=== PATIENT | male | born 1945 | race Caucasian/White ===

== ENCOUNTER 2018-07-24 00:32 | Emergency (ER) | payer MEDICARE, MEDICAID ==
[~2018-07-24] VITALS: Ht 175.3 cm; Wt 82.0 kg
[2018-07-24] MEDS ORDERED: SODIUM CHLORIDE 0.9% 1,000 ML IV ONE (01:30)
[2018-07-24 02:21] LABS: CHLORIDE 108 mEq/L (98-107)
[2018-07-24 02:39] LABS: HEMOGLOBIN 12.6 g/dL (14.0-18.0); MEAN CORPUSCULAR HEMOGLOBIN 30.4 pg (28.0-32.0); MEAN CORPUSCULAR VOLUME 89.4 fL (80.0-94.0); PLATELET 227 x1000/uL (130-400); RED BLOOD CELL COUNT 4.14 mill/uL (4.7-6.1); RED CELL DISTRIBUTION WIDTH 14.1 % (11.6-14.6)
[2018-07-24] MEDS ORDERED: ONDANSETRON HCL 4MG/2ML INJ IV STA (07:51)
[2018-07-24] MEDS ORDERED: MORPHINE SULFATE 4 MG/ML CPJ (NOT FOR IM USE) IV STA (07:51)
[2018-07-24] MEDS ORDERED: MORPHINE SULFATE 2 MG/ML CPJ (NOT FOR IM USE) IV STA (08:09)
[2018-07-24 08:54] VITALS: BP 133/86
== END 2018-07-24 09:16 | disposition short-term general hospital (02) ==
LOC: ER 01:07 → CANRESERV 04:17 → ENRESERV 04:17 → CANBEDREQ 04:59 → ER 09:16
DX: S73.005A Unspecified dislocation of left hip, initial encounter (principal); X58.XXXA Exposure to other specified factors, initial encounter; Y93.89 Activity, other specified; Y92.89 Other specified places as the place of occurrence of the external cause; I10 Essential (primary) hypertension; Z96.643 Presence of artificial hip joint, bilateral
CPT/HCPCS: 36415; 72170; 80053; 85027; 96374; 96375; 99285; J2270; J2405; J7030

== ENCOUNTER 2018-09-02 14:29 | Inpatient (IN) | payer MEDICARE, MEDICAID ==
[~2018-09-02] VITALS: Ht 165.1 cm; Wt 66.7 kg
[2018-09-02] MEDS ORDERED: METO-396 PO (14:37)
[2018-09-02] MEDS ORDERED: BENA5TAB6 PO (14:37)
[2018-09-02] MEDS ORDERED: SODIUM CHLORIDE 0.9% 1,000 ML IV ONE (14:59)
[2018-09-02] MEDS ORDERED: ACETAMINOPHEN 325MG TABLET PO STA (14:59)
[2018-09-02 16:08] LABS: BASOPHILS % 0.8 % (0.0-2.0); EOSINOPHILS % 1.6 % (0.0-5.0); HEMATOCRIT. 42.1 % (42.0-52.0); HEMOGLOBIN. 14.3 g/dL (14.0-18.0); LYMPHOCYTES % 11.8 % (20.0-50.0); MEAN CORPUSCULAR HEMOGLOBIN 30.6 pg (28.0-32.0); MEAN CORPUSCULAR VOLUME 90.5 fL (80.0-94.0); MEAN PLATELET VOLUME 8.2 fl (7.4-10.4); MONOCYTES % 6.9 % (2.0-8.0); NEUTROPHILS % 78.9 % (40.0-76.0); PLATELET 220 x1000/uL (130-400); RED BLOOD CELL COUNT 4.66 mill/uL (4.7-6.1); RED CELL DISTRIBUTION WIDTH 14.9 % (11.6-14.6)
[2018-09-02 16:14] LABS: INR 1.1; PROTHROMBIN TIME 11.4 sec (9.1-11.1)
[2018-09-02 16:15] LABS: CHLORIDE 105 mEq/L (98-107)
[2018-09-02 16:19] LABS: ETHANOL BLOOD < 10 mg/dL
[2018-09-02 16:23] LABS: CREATINE KINASE 42 IU/L (39-308)
[2018-09-02 17:07] LABS: CLARITY URINE CLEAR (CLEAR); COLOR URINE YELLOW (YELLOW); KETONES URINE TRACE (NEGATIVE); LEUKOCYTE ESTERASE URINE NEGATIVE (NEGATIVE); NITRITE URINE NEGATIVE (NEGATIVE); OCCULT BLOOD URINE NEGATIVE (NEGATIVE); PH URINE 5.5 (4.5-8.0); PROTEIN URINE NEGATIVE (NEGATIVE); UROBILINOGEN URINE 0.2 E.U./dL (0.2-1.0)
[2018-09-02 17:24] LABS: *AMPHETAMINES SCREEN URINE NEGATIVE (NEGATIVE); *BARBITURATES SCREEN URINE NEGATIVE (NEGATIVE); *BENZODIAZEPINES SCREEN URINE NEGATIVE (NEGATIVE); *COCAINE SCREEN URINE NEGATIVE (NEGATIVE)
[2018-09-02 17:25] LABS: CANNABINOID URINE SCREEN NEGATIVE (NEGATIVE); METHADONE URINE SCREEN NEGATIVE (NEGATIVE); OPIATES URINE SCREEN NEGATIVE (NEGATIVE); PHENCYCLIDINE URINE SCREEN NEGATIVE (NEGATIVE)
[2018-09-02] MEDS ORDERED: TRAMADOL 50MG TABLET PO PRN (18:30)
[2018-09-02] MEDS ORDERED: IPRATROPIUM/ALBUTEROL 0.5-3(2.5)MG/3ML NEB INH PRN (18:30)
[2018-09-02] MEDS ORDERED: NA PHOS,M-B/NA PHOS,DI-BA ENEMA 118ML PR PRN (18:30)
[2018-09-02] MEDS ORDERED: MORPHINE SULFATE 4 MG/ML CPJ (NOT FOR IM USE) IV PRN (18:30)
[2018-09-02] MEDS ORDERED: CLONIDINE 0.1MG TABLET PO PRN (18:30)
[2018-09-02] MEDS ORDERED: ENOXAPARIN 40MG/0.4ML SYR SUBCUT SCH (18:30)
[2018-09-02] MEDS ORDERED: NITROGLYCERIN 0.4MG TABLET SL SL PRN (18:30)
[2018-09-02] MEDS ORDERED: ONDANSETRON HCL 4MG/2ML INJ IV PRN (18:30)
[2018-09-02] MEDS ORDERED: GUAIFENESIN 200MG/10ML SUGAR FREE UDC PO PRN (18:30)
[2018-09-02] MEDS ORDERED: MAGNESIUM/ALUMINUM HYDROXIDE/SIMETHICONE 30ML UDC PO PRN (18:30)
[2018-09-02] MEDS ORDERED: LORAZEPAM 0.5MG TABLET PO PRN (18:30)
[2018-09-02] MEDS ORDERED: DOCUSATE SODIUM 100MG CAPSULE PO PRN (21:00)
[2018-09-02] MEDS ORDERED: ENOXAPARIN 60MG/0.6ML SYR SUBCUT SCH (21:00)
[2018-09-02 21:45] VITALS: BP 156/78
[2018-09-02] MEDS: METOPROLOL TARTRATE 25MG TABLET PO SCH (21:45)
[2018-09-02] MEDS ORDERED: ZOLPIDEM TARTRATE 5MG TABLET PO PRN (22:00)
[2018-09-02] MEDS: ACETAMINOPHEN 325MG TABLET PO PRN (22:23)
[2018-09-02] MEDS ORDERED: LEVOFLOXACIN 500MG PREMIX 100 ML IV SCH (22:30)
[2018-09-02] MEDS ORDERED: ASPI-1159 PO (22:41)
[2018-09-03] MEDS: LEVOFLOXACIN 500MG PREMIX 100 ML IV SCH ×2 (00:04→23:52)
[2018-09-03] MEDS ORDERED: LEFL10TA15 PO (00:23)
[2018-09-03] MEDS ORDERED: OMEP20TA2 PO (00:23)
[2018-09-03 01:18] LABS: CREATINE KINASE 60 IU/L (39-308)
[2018-09-03 01:23] LABS: CREATINE KINASE MB FRACTION 1.9 ng/mL (0.5-3.6)
[2018-09-03] MEDS: ACETAMINOPHEN 325MG TABLET PO PRN ×2 (02:51→14:12)
[2018-09-03 04:00] VITALS: BP 102/57
[2018-09-03 08:00] VITALS: BP 113/65
[2018-09-03 08:18] LABS: CREATINE KINASE MB FRACTION 1.6 ng/mL (0.5-3.6)
[2018-09-03 08:19] LABS: CREATINE KINASE 52 IU/L (39-308)
[2018-09-03] MEDS: ENOXAPARIN 60MG/0.6ML SYR SUBCUT SCH (09:53)
[2018-09-03] MEDS: ZINC SULFATE 220 MG ( 50 ) CAPSULE PO SCH (09:53)
[2018-09-03] MEDS: ASPIRIN 325MG EC TABLET PO SCH (09:53)
[2018-09-03] MEDS: METOPROLOL TARTRATE 25MG TABLET PO SCH ×2 (09:54→21:02)
[2018-09-03] MEDS ORDERED: CEFTRIAXONE 1 G PREMIX 50 ML IV SCH (11:00)
[2018-09-03] MEDS: ASCORBIC ACID 500 MG TABLET PO SCH ×2 (11:45→21:02)
[2018-09-03 12:00] VITALS: BP 126/71
[2018-09-03 16:00] VITALS: BP 137/84
[2018-09-03 20:16] VITALS: BP 146/86
[2018-09-04] VITALS: BP 125/72
[2018-09-04 04:11] VITALS: BP 148/86
[2018-09-04 07:44] VITALS: BP 104/68
[2018-09-04] MEDS: METOPROLOL TARTRATE 25MG TABLET PO SCH ×2 (09:00→21:50)
[2018-09-04] MEDS: ASCORBIC ACID 500 MG TABLET PO SCH ×2 (09:04→21:50)
[2018-09-04] MEDS: ASPIRIN 325MG EC TABLET PO SCH (09:04)
[2018-09-04] MEDS: ZINC SULFATE 220 MG ( 50 ) CAPSULE PO SCH (09:04)
[2018-09-04] MEDS: ENOXAPARIN 60MG/0.6ML SYR SUBCUT SCH (09:04)
[2018-09-04] MEDS: CEFTRIAXONE 1 G PREMIX 50 ML IV SCH (11:39)
[2018-09-04] MEDS: ACETAMINOPHEN 325MG TABLET PO PRN (11:44)
[2018-09-04 11:46] VITALS: BP 122/74
[2018-09-04 16:08] VITALS: BP 140/82
[2018-09-04 20:00] VITALS: BP 114/76
[2018-09-04] MEDS: LEFLUNOMIDE 10 MG PO SCH (21:50)
[2018-09-05] VITALS (7 sets, daily range): BP systolic 118–140; BP diastolic 69–90
[2018-09-05] MEDS: LEVOFLOXACIN 500MG PREMIX 100 ML IV SCH (00:12)
[2018-09-05] MEDS: METOPROLOL TARTRATE 25MG TABLET PO SCH ×3 (08:40→21:40)
[2018-09-05] MEDS: ZINC SULFATE 220 MG ( 50 ) CAPSULE PO SCH (08:40)
[2018-09-05] MEDS: LEFLUNOMIDE 10 MG PO SCH (08:40)
[2018-09-05] MEDS: ASCORBIC ACID 500 MG TABLET PO SCH ×2 (08:40→21:39)
[2018-09-05] MEDS: ASPIRIN 325MG EC TABLET PO SCH (08:40)
[2018-09-05] MEDS: ENOXAPARIN 60MG/0.6ML SYR SUBCUT SCH (08:41)
[2018-09-05] MEDS: CEFTRIAXONE 1 G PREMIX 50 ML IV SCH (10:38)
[2018-09-05] MEDS: LEVOFLOXACIN 500MG TABLET PO SCH ×3 (21:35→21:37)
[2018-09-06] VITALS: BP 127/70
[2018-09-06 04:04] VITALS: BP 116/69
[2018-09-06 08:00] VITALS: BP 126/77
[2018-09-06] MEDS ORDERED: ENOXAPARIN 40MG/0.4ML SYR SUBCUT SCH (09:00)
[2018-09-06] MEDS: ZINC SULFATE 220 MG ( 50 ) CAPSULE PO SCH (11:21)
[2018-09-06] MEDS: ASCORBIC ACID 500 MG TABLET PO SCH (11:21)
[2018-09-06] MEDS: ASPIRIN 325MG EC TABLET PO SCH (11:21)
[2018-09-06] MEDS: CEFTRIAXONE 1 G PREMIX 50 ML IV SCH (11:21)
[2018-09-06] MEDS: LEFLUNOMIDE 10 MG PO SCH (11:24)
[2018-09-06 12:00] VITALS: BP 122/82
[2018-09-06] MEDS: ACETAMINOPHEN 325MG TABLET PO PRN (14:39)
[2018-09-06 15:10] VITALS: BP 115/74
[2018-09-06 16:00] VITALS: BP 139/99
== END 2018-09-06 16:10 | disposition home or self-care (01) | DRG 872 ==
LOC: ER 14:29 → 6WST 18:09 → SUPCPDRO 18:21 → ENRESERV 18:49
PROVIDERS: ADMIT Internal Medicine; ATTEND Internal Medicine
DX: A41.9 Sepsis, unspecified organism (principal); H81.10 Benign paroxysmal vertigo, unspecified ear; I10 Essential (primary) hypertension; Z96.612 Presence of left artificial shoulder joint; Z96.649 Presence of unspecified artificial hip joint; M19.90 Unspecified osteoarthritis, unspecified site; Z79.899 Other long term (current) drug therapy; Z95.1 Presence of aortocoronary bypass graft; Z95.2 Presence of prosthetic heart valve
CPT/HCPCS: 36415; 70551; 71045; 80061; 80305; 82550; 82553; 83036; 83605; 83880; 84484; 93005; 93306; 96374; 97162; 99285; G0482; J0696; J1650; J1956; J2405; J7030; J7050

== ENCOUNTER 2018-10-19 21:45 | Inpatient (IN) | payer MEDICARE, MEDICAID ==
[~2018-10-19] VITALS: Ht 165.1 cm; Wt 71.7 kg
[~2018-10-19 21:45] MED LIST: ASPI-1159 PO; BENA5TAB6 PO; LEFL10TA15 PO; METO-396 PO; OMEP20TA2 PO
[2018-10-20] MEDS ORDERED: ACETAMINOPHEN WITH CODEINE 300/30MG TABLET PO ONE (03:15)
[2018-10-20 04:48] LABS: BASOPHILS % 0.7 % (0.0-2.0); EOSINOPHILS % 4.2 % (0.0-5.0); HEMOGLOBIN. 14.2 g/dL (14.0-18.0); LYMPHOCYTES % 22.5 % (20.0-50.0); MEAN CORPUSCULAR HEMOGLOBIN 30.5 pg (28.0-32.0); MEAN CORPUSCULAR VOLUME 90.6 fL (80.0-94.0); MEAN PLATELET VOLUME 7.7 fl (7.4-10.4); MONOCYTES % 10.9 % (2.0-8.0); NEUTROPHILS % 61.7 % (40.0-76.0); PLATELET 209 x1000/uL (130-400); RED BLOOD CELL COUNT 4.64 mill/uL (4.7-6.1); RED CELL DISTRIBUTION WIDTH 14.3 % (11.6-14.6)
[2018-10-20 04:49] LABS: CHLORIDE 110 mEq/L (98-107)
[2018-10-20 04:52] LABS: INR 1.1; PROTHROMBIN TIME 11.4 sec (9.1-11.1)
[2018-10-20] MEDS ORDERED: ONDANSETRON HCL 4MG/2ML INJ IV ONE (05:15)
[2018-10-20] MEDS ORDERED: PROPOFOL 200MG/20ML VIAL IV ONE (05:15)
[2018-10-20] MEDS ORDERED: IPRATROPIUM/ALBUTEROL 0.5-3(2.5)MG/3ML NEB INH PRN (10:15)
[2018-10-20] MEDS ORDERED: NITROGLYCERIN 0.4MG TABLET SL SL PRN (10:15)
[2018-10-20] MEDS ORDERED: TRAMADOL 50MG TABLET PO PRN (10:15)
[2018-10-20] MEDS ORDERED: GUAIFENESIN 200MG/10ML SUGAR FREE UDC PO PRN (10:15)
[2018-10-20] MEDS ORDERED: MAGNESIUM/ALUMINUM HYDROXIDE/SIMETHICONE 30ML UDC PO PRN (10:15)
[2018-10-20] MEDS ORDERED: MORPHINE SULFATE 4 MG/ML CPJ (NOT FOR IM USE) IV PRN (10:15)
[2018-10-20] MEDS ORDERED: ONDANSETRON HCL 4MG/2ML INJ IV PRN (10:15)
[2018-10-20] MEDS ORDERED: DOCUSATE SODIUM 100MG CAPSULE PO PRN (10:15)
[2018-10-20 10:34] VITALS: BP 115/65
[2018-10-20] MEDS: ENOXAPARIN 40MG/0.4ML SYR SUBCUT SCH (11:44)
[2018-10-20] MEDS: FAMOTIDINE 20MG TABLET PO SCH ×2 (11:44→21:05)
[2018-10-20 12:00] VITALS: BP 122/64
[2018-10-20 16:00] VITALS: BP 126/62
[2018-10-20] MEDS: CARVEDILOL 3.125 MG TABLET PO SCH (17:25)
[2018-10-20 20:00] VITALS: BP 143/95
[2018-10-20] MEDS ORDERED: ZOLPIDEM TARTRATE 5MG TABLET PO PRN (21:00)
[2018-10-20] MEDS: ASCORBIC ACID 500 MG TABLET PO SCH (21:05)
[2018-10-20 23:50] VITALS: BP 119/68
[2018-10-21 04:00] VITALS: BP 140/83
[2018-10-21] MEDS: CARVEDILOL 3.125 MG TABLET PO SCH ×3 (06:30→21:30)
[2018-10-21 08:00] VITALS: BP 132/83
[2018-10-21] MEDS: ZINC SULFATE 220 MG ( 50 ) CAPSULE PO SCH (08:19)
[2018-10-21] MEDS: ASCORBIC ACID 500 MG TABLET PO SCH ×2 (08:20→20:42)
[2018-10-21] MEDS: FAMOTIDINE 20MG TABLET PO SCH ×2 (08:20→20:42)
[2018-10-21] MEDS: ENOXAPARIN 40MG/0.4ML SYR SUBCUT SCH (08:20)
[2018-10-21] MEDS: ACETAMINOPHEN 325MG TABLET PO PRN (11:44)
[2018-10-21 12:00] VITALS: BP 121/73
[2018-10-21 16:00] VITALS: BP 133/64
[2018-10-21 20:00] VITALS: BP 124/87
[2018-10-22] VITALS: BP 145/81
[2018-10-22 04:00] VITALS: BP 143/93
[2018-10-22] MEDS: ACETAMINOPHEN 325MG TABLET PO PRN ×2 (04:01→15:44)
[2018-10-22] MEDS: CLONIDINE 0.1MG TABLET PO PRN (04:02)
[2018-10-22 08:00] VITALS: BP 128/81
[2018-10-22] MEDS: ASCORBIC ACID 500 MG TABLET PO SCH ×2 (08:54→22:23)
[2018-10-22] MEDS: FAMOTIDINE 20MG TABLET PO SCH ×2 (08:54→22:23)
[2018-10-22] MEDS: ZINC SULFATE 220 MG ( 50 ) CAPSULE PO SCH (08:54)
[2018-10-22] MEDS: ENOXAPARIN 40MG/0.4ML SYR SUBCUT SCH (08:54)
[2018-10-22 12:00] VITALS: BP 128/85
[2018-10-22 16:00] VITALS: BP 140/92
[2018-10-22] MEDS: CARVEDILOL 3.125 MG TABLET PO SCH (17:23)
[2018-10-22 20:00] VITALS: BP_SYST 140; BP_SYST 149; BP_DIAS 83
[2018-10-23] VITALS: BP 136/83
[2018-10-23 04:00] VITALS: BP 146/92
[2018-10-23] MEDS: CARVEDILOL 3.125 MG TABLET PO SCH (07:11)
[2018-10-23] MEDS: ZINC SULFATE 220 MG ( 50 ) CAPSULE PO SCH (09:14)
[2018-10-23] MEDS: FAMOTIDINE 20MG TABLET PO SCH (09:14)
[2018-10-23] MEDS: ENOXAPARIN 40MG/0.4ML SYR SUBCUT SCH (09:14)
[2018-10-23] MEDS: ASCORBIC ACID 500 MG TABLET PO SCH (09:14)
[2018-10-23 11:15] VITALS: BP 110/65
[2018-10-23] MEDS: ACETAMINOPHEN 325MG TABLET PO PRN (12:09)
[2018-10-23] MEDS: CLONIDINE 0.1MG TABLET PO PRN (12:22)
== END 2018-10-23 13:12 | DRG 561 ==
LOC: ER 21:45 → 6EST 10-20 07:54 → ENRESERV 10-20 08:59
PROVIDERS: ADMIT Internal Medicine; ATTEND Internal Medicine
PROC: 0SWBXJZ Revision of Synthetic Substitute in Left Hip Joint, External Approach (ICD-10-PCS; principal; 2018-10-20)
DX: T84.021A Dislocation of internal left hip prosthesis, initial encounter (principal); I10 Essential (primary) hypertension; M06.9 Rheumatoid arthritis, unspecified; E83.51 Hypocalcemia; Z96.643 Presence of artificial hip joint, bilateral; Y79.2 Prosthetic and other implants, materials and accessory orthopedic devices associated with adverse incidents; Y92.89 Other specified places as the place of occurrence of the external cause; Z91.011 Allergy to milk products; Z95.2 Presence of prosthetic heart valve; Z79.82 Long term (current) use of aspirin; Z79.899 Other long term (current) drug therapy
CPT/HCPCS: 36415; 72170; 83036; 93970; 96374; 96375; 99285; J1650; J2270; J2405; J2704; L1830